=== PATIENT | male | born 1995 | race Caucasian/White ===

== ENCOUNTER 2018-12-18 15:19 | Emergency (ER) | payer SELFPAY ==
[~2018-12-18] VITALS: Ht 165.1 cm; Wt 89.4 kg
--- NOTE | 2018-12-18 15:28 | NUR ---
PATIENT AMBULATED TO BED 4.
[2018-12-18 15:33] VITALS: BP 139/65
--- NOTE | 2018-12-18 15:42 | NUR ---
PT C/O LOW ENERGY LEVELS AND DIZZINESS X 2 DAYS. PT DENIES S/S AT THIS TIME. PT STATES HE MAY HAVE ANXIETY. DIZZINESS WITH CHANGING POSITION FROM SITTING TO STANDING. SOMETIMES DIZZINESS WILL NOT GO AWAY AFTER POSITION CHANGES. HEADACHE COMES ON WHEN PATIENT "TRIES TO FOCUS (EYES) TOO HARD". STATES TOOK BP YESTERAY AND MACHINE SHOWED HR IN 120S. FSBS 82. LUNGS CTAB. RRR 74 BPM. HX-
--- NOTE | 2018-12-18 16:20 | NUR ---
DR. HANSON SPEAKING WITH PATIENT AT BEDSIDE.
[2018-12-18 16:48] VITALS: BP 139/65
== END 2018-12-18 16:48 | disposition home or self-care (01) ==
LOC: MED 15:19
DX: R42 Dizziness and giddiness (principal); F41.9 Anxiety disorder, unspecified; F17.200 Nicotine dependence, unspecified, uncomplicated
CPT/HCPCS: 81002; 82948; 99284

== ENCOUNTER 2019-01-07 18:24 | Emergency (ER) | payer OTHER ==
[~2019-01-07] VITALS: Ht 165.1 cm; Wt 88.0 kg
[2019-01-07 18:39] VITALS: BP 115/65
--- NOTE | 2019-01-07 20:50 | NUR ---
PT AMBULATED TO BED 04.
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
[2019-01-07 22:08] VITALS: BP 115/65
--- NOTE | 2019-01-07 22:08 | NUR ---
Patient discharged with v/s stable. Written and verbal after care instructions given and explained. Patient verbalized understanding. Ambulatory with steady gait. All questions addressed prior to discharge. Advised to follow up with PMD.
== END 2019-01-07 22:08 | disposition home or self-care (01) ==
LOC: MED 18:24
DX: R07.9 Chest pain, unspecified (principal); R06.02 Shortness of breath; F41.9 Anxiety disorder, unspecified
CPT/HCPCS: 93005; 99283

== ENCOUNTER 2019-09-19 12:44 | Emergency (ER) | payer OTHER ==
[~2019-09-19] VITALS: Ht 162.6 cm; Wt 93.0 kg
[2019-09-19 13:38] VITALS: BP 125/68
[2019-09-19 14:12] LABS: BASOPHILS % (AUTO) 0.3 % (0.0-2.0); EOSINOPHILS # (AUTO) 0.1 K/uL (0-0.4); EOSINOPHILS % (AUTO) 0.6 % (0.0-4.0); HEMATOCRIT 48.4 % (36-52); HEMOGLOBIN 16.3 g/dL (12.0-18.0); LYMPHOCYTES # (AUTO) 1.5 K/uL (2.0-11.5); LYMPHOCYTES % (AUTO) 14.9 % (20.5-51.1); MEAN CORPUSCULAR HEMOGLOBIN 31 pg (27-31); MEAN CORPUSCULAR HGB CONC 34 g/dL (33-37); MEAN CORPUSCULAR VOLUME 91.1 fL (80-94); MONOCYTES # (AUTO) 0.6 K/uL (0.8-1.0); MONOCYTES % (AUTO) 6.4 % (1.7-9.3); NEUTROPHILS # (AUTO) 7.8 K/uL (1.8-7.7); NEUTROPHILS % (AUTO) 77.8 % (42.2-75.2); PLATELET COUNT (AUTO) 225 K/uL (140-450); RED BLOOD CELL COUNT(AUTO) 5.32 MIL/uL (4.20-6.10); RED CELL DISTRIBUTION WIDTH 13.1 % (11.6-13.7)
[2019-09-19 14:33] LABS: ALBUMIN 4.3 g/dL (3.4-5.0); ANION GAP 13.4 (8-16); CARBON DIOXIDE 27.2 mmol/L (21-32); CREATININE 1.1 mg/dL (0.6-1.3); POTASSIUM 3.6 mmol/L (3.5-5.1); TOTAL BILIRUBIN 1.8 mg/dL (0.0-1.0)
--- NOTE | 2019-09-19 15:12 | NUR ---
PT ASSESSED BY IRIS JACOBS, NO NURSING INTERVENTIONS TO COMPLETE AT THIS TIME
[2019-09-19 15:13] VITALS: BP 117/69
--- NOTE | 2019-09-19 15:13 | NUR ---
Patient discharged with v/s stable. Written and verbal after care instructions given and explained. Patient alert, oriented and verbalized understanding of instructions. Ambulatory with steady gait. All questions addressed prior to discharge. ID band removed. Patient advised to follow up with PMD. Rx of ZOFRAN 4MG AND MECLIZINE 25MG given. Patient educated on indication of medication including possible reaction and side effects. Opportunity to ask questions provided and answered.
== END 2019-09-19 15:13 | disposition home or self-care (01) ==
LOC: MED 12:44
DX: R42 Dizziness and giddiness (principal); R03.0 Elevated blood-pressure reading, without diagnosis of hypertension; R11.10 Vomiting, unspecified
CPT/HCPCS: 36415; 71045; 80053; 85025; 93005; 99285

== ENCOUNTER 2021-07-30 09:17 | Emergency (ER) | payer OTHER ==
[~2021-07-30] VITALS: Ht 162.6 cm; Wt 89.4 kg
[2021-07-30 09:22] VITALS: BP 112/52
--- NOTE | 2021-07-30 09:25 | NUR ---
Patient ambulated with steady gait to bed 1.
--- NOTE | 2021-07-30 09:30 | NUR ---
25 Y/O MALE C/O HEADACHE X3 DAYS, DENIES INJURY OR TRAUMA. REPORTS TAKING ASPIRIN WITH NO RELIEF, DENIES VISION CHANGES OR PHOTOPHOBIA. PT DENIES CHEST PAIN, SOB. PT DENIES FEVER OR CHILLS. LUNG SOUNDS CTA. BED LOCKED IN LOWEST POSITION. BED RAIL X1. PMH: DENIES NKA
--- NOTE | 2021-07-30 10:35 | NUR ---
PT RESTING IN NO APPARENT DISTRESS. BREATHING EVEN AND UNLABORED. WILL CONTINUE TO MONITOR.
[2021-07-30] MEDS: CYCLOBENZAPRINE 10 MG TAB PO ONE (10:45)
[2021-07-30] MEDS: KETOROLAC 60 MG/2 ML VIAL IM ONE (10:46)
[2021-07-30] MEDS ORDERED: CYCL-711 PO (11:43)
[2021-07-30] MEDS ORDERED: NAPR-54 PO (11:43)
[2021-07-30 11:48] VITALS: BP 112/52
--- NOTE | 2021-07-30 11:50 | NUR ---
Patient discharged with v/s stable. Written and verbal after care instructions given and explained. Patient alert, oriented and verbalized understanding of instructions. Ambulatory with steady gait. All questions addressed prior to discharge. ID band removed. Patient advised to follow up with PMD. Rx of FLEXETIL, NAPROSYN given. Patient educated on indication of medication including possible reaction and side effects. Opportunity to ask questions provided and answered.
== END 2021-07-30 11:50 | disposition home or self-care (01) ==
LOC: MED 09:17
DX: G44.209 Tension-type headache, unspecified, not intractable (principal); M54.2 Cervicalgia
CPT/HCPCS: 96372; 99283; J1885

== ENCOUNTER 2023-11-24 18:22 | Emergency (ER) | payer OTHER ==
[~2023-11-24] VITALS: Ht 165.1 cm; Wt 79.6 kg
[~2023-11-24 18:22] MED LIST: CYCL-711 PO; NAPR-337 PO
[2023-11-24 18:46] VITALS: BP 116/74; PULSE 86; RESP 19; TEMP 98.2; O2SAT 98
[2023-11-24 20:46] LABS: BASOPHILS % (AUTO) 0.4 % (0.0-2.0); EOSINOPHILS # (AUTO) 0.1 K/uL (0-0.4); EOSINOPHILS % (AUTO) 1.3 % (0.0-4.0); HEMATOCRIT 43.2 % (36-52); HEMOGLOBIN 14.4 g/dL (12.0-18.0); LYMPHOCYTES # (AUTO) 2.5 K/uL (2.0-11.5); LYMPHOCYTES % (AUTO) 26.7 % (20.5-51.1); MEAN CORPUSCULAR HEMOGLOBIN 30 pg (27-31); MEAN CORPUSCULAR HGB CONC 33 g/dL (33-37); MEAN CORPUSCULAR VOLUME 90.9 fL (80-94); MONOCYTES # (AUTO) 0.7 K/uL (0.8-1.0); MONOCYTES % (AUTO) 7.3 % (1.7-9.3); NEUTROPHILS % (AUTO) 64.3 % (42.2-75.2); PLATELET COUNT (AUTO) 254 K/uL (140-450); RED BLOOD CELL COUNT(AUTO) 4.76 MIL/uL (4.20-6.10); RED CELL DISTRIBUTION WIDTH 13.1 % (11.6-13.7); WHITE BLOOD COUNT (AUTO) 9.3 K/uL (4.8-10.8)
[2023-11-24 21:05] LABS: ANION GAP 13.2 (8-16); CARBON DIOXIDE 29.3 mmol/L (21-32); CREATININE 1.1 mg/dL (0.6-1.3); POTASSIUM 4.5 mmol/L (3.5-5.1)
[2023-11-24 21:11] LABS: APPEARANCE,URINE CLEAR (CLEAR); BILIRUBIN,URINE NEGATIVE (NEGATIVE); BLOOD, URINE NEGATIVE (NEGATIVE); COLOR,URINE YELLOW (YELLOW); LEUKOCYTE ESTERASE ,URINE NEGATIVE (NEGATIVE); NITRITE, URINE NEGATIVE (NEGATIVE); PROTEIN,URINE NEGATIVE (NEGATIVE); UGLUCOSE NEGATIVE (NEGATIVE)
[2023-11-24 21:23] LABS: AMPHETAMINE, URINE NEGATIVE ng/ml (NEG <=1000); BARBITURATE, URINE NEGATIVE ng/ml (NEG <=200); BENZODIAZEPINE, URINE POSITIVE ng/mL (NEG <=200); CANNABINOID, URINE NEGATIVE ng/mL (NEG <=50); COCAINE, URINE NEGATIVE ng/mL (NEG <=300); OPIATE, URINE NEGATIVE ng/mL (NEG <=2000); PHENCYCLIDINE SCREEN,URINE NEGATIVE ng/mL (NEG <=25)
[2023-11-24] MEDS ORDERED: ESOM40EC PO (21:30)
[2023-11-24 21:46] VITALS: BP 116/74; PULSE 86; RESP 19; TEMP 98.2; O2SAT 98
== END 2023-11-24 21:46 | disposition home or self-care (01) ==
LOC: MED 18:22
DX: K21.9 Gastro-esophageal reflux disease without esophagitis (principal); F41.9 Anxiety disorder, unspecified; Z79.899 Other long term (current) drug therapy
CPT/HCPCS: 36415; 80048; 80305; 81003; 85025; 93005; 99284

== ENCOUNTER 2023-12-16 11:36 | Emergency (ER) | payer OTHER ==
[~2023-12-16] VITALS: Ht 165.1 cm; Wt 79.4 kg
[~2023-12-16 11:36] MED LIST changes: +ESOM40EC PO
[2023-12-16 12:14] VITALS: BP 119/71; PULSE 77; RESP 16; TEMP 98.1; O2SAT 99
[2023-12-16 12:46] LABS: BASOPHILS % (AUTO) 0.5 % (0.0-2.0); EOSINOPHILS # (AUTO) 0.1 K/uL (0-0.4); EOSINOPHILS % (AUTO) 1.4 % (0.0-4.0); HEMATOCRIT 43.8 % (36-52); HEMOGLOBIN 14.8 g/dL (12.0-18.0); LYMPHOCYTES # (AUTO) 2.1 K/uL (2.0-11.5); LYMPHOCYTES % (AUTO) 24.7 % (20.5-51.1); MEAN CORPUSCULAR HEMOGLOBIN 30 pg (27-31); MEAN CORPUSCULAR HGB CONC 34 g/dL (33-37); MEAN CORPUSCULAR VOLUME 89.6 fL (80-94); MONOCYTES # (AUTO) 0.6 K/uL (0.8-1.0); NEUTROPHILS # (AUTO) 5.6 K/uL (1.8-7.7); NEUTROPHILS % (AUTO) 66.4 % (42.2-75.2); PLATELET COUNT (AUTO) 240 K/uL (140-450); RED BLOOD CELL COUNT(AUTO) 4.88 MIL/uL (4.20-6.10); RED CELL DISTRIBUTION WIDTH 13.3 % (11.6-13.7); WHITE BLOOD COUNT (AUTO) 8.4 K/uL (4.8-10.8)
[2023-12-16 12:48] LABS: APPEARANCE,URINE CLEAR (CLEAR); BILIRUBIN,URINE NEGATIVE (NEGATIVE); BLOOD, URINE NEGATIVE (NEGATIVE); COLOR,URINE YELLOW (YELLOW); LEUKOCYTE ESTERASE ,URINE NEGATIVE (NEGATIVE); NITRITE, URINE NEGATIVE (NEGATIVE); PROTEIN,URINE NEGATIVE (NEGATIVE); UGLUCOSE NEGATIVE (NEGATIVE); UROBILINOGEN,URINE 0.2 EU/dL (0.2 - 1)
[2023-12-16] MEDS: NACL 0.9% 1,000 ML IV SCH (12:48)
[2023-12-16] MEDS: KETOROLAC 30 MG/ML VIAL IVP ONE (12:49)
[2023-12-16 12:59] VITALS: BP 119/71; PULSE 77; RESP 16; TEMP 98.1
[2023-12-16 13:08] LABS: CALCIUM 9.2 mg/dL (8.5-10.1); CARBON DIOXIDE 29.5 mmol/L (21-32); POTASSIUM 3.5 mmol/L (3.5-5.1)
[2023-12-16 13:14] LABS: ALBUMIN 4.2 g/dL (3.4-5.0); BILIRUBIN,DIRECT 0.3 mg/dL (0.0-0.3); TOTAL BILIRUBIN 1.8 mg/dL (0.0-1.0); TOTAL PROTEIN, SERUM 7.7 g/dL (6.4-8.2)
[2023-12-16 13:16] VITALS: O2SAT 99
[2023-12-16 13:20] VITALS: O2SAT 99
[2023-12-16] MEDS ORDERED: IBUP-2213 PO (14:11)
== END 2023-12-16 14:20 | disposition home or self-care (01) ==
LOC: MED 11:36
DX: R10.31 Right lower quadrant pain (principal); F17.200 Nicotine dependence, unspecified, uncomplicated; Z79.899 Other long term (current) drug therapy
CPT/HCPCS: 36415; 74176; 80048; 80076; 81003; 83690; 85025; 96361; 96374; 99285; J1885; J7030